=== PATIENT | male | born 1985 | race African-American/Black ===

== ENCOUNTER 2017-07-05 05:12 | Inpatient (IN) | payer OTHER ==
[~2017-07-05] VITALS: Ht 188 cm; Wt 124.1 kg
[2017-07-05] VITALS (7 sets, daily range): BP systolic 145–189; BP diastolic 75–91; PULSE 73–113; RESP 16–22; TEMP 98–99.8; O2SAT 79–99
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
[2017-07-05] MEDS ORDERED: LORazepam 2 MG/ML VIAL IM ONE (05:30)
[2017-07-05] MEDS ORDERED: HALOPERIDOL LACTATE 5 MG/ML AMP IM ONE (05:30)
[2017-07-05] MEDS ORDERED: diphenhydrAMINE HCL 50 MG/ML VIAL IM ONE (05:30)
[2017-07-05 05:46] LABS: AUTOMATED NEUTROPHIL # 2.8 TH/MM3 (1.8-7.7); BASOPHIL % 0.4 % (0.0-2.0); EOSINOPHIL % 0.6 % (0.0-4.0); HEMATOCRIT 41.8 % (39.0-51.0); HEMO FLAGS DIFF FINAL; LYMPH % 24.1 % (9.0-44.0); LYMPHOCYTE # 1.1 TH/MM3 (1.0-4.8); MEAN CORPUSCULAR HEMOGLOBIN 29.4 PG (27.0-34.0); MEAN CORPUSCULAR HGB CONC 34.1 % (32.0-36.0); MONO % 13.9 % (0.0-8.0); PLATELET COUNT 191 TH/MM3 (150-450); RED BLOOD COUNT 4.87 MIL/MM3 (4.50-5.90); RED CELL DISTRIBUTION WIDTH 13.2 % (11.6-17.2); WHITE BLOOD COUNT 4.6 TH/MM3 (4.0-11.0)
[2017-07-05 06:05] LABS: ANION GAP 11 MEQ/L (5-15); AST (GOT) 55 U/L (15-37); BICARBONATE 25.1 MEQ/L (21.0-32.0); BLOOD UREA NITROGEN 17 MG/DL (7-18); CHLORIDE 103 MEQ/L (98-107); GLOMERULAR FILTRATION RATE 56 ML/MIN (>89); POTASSIUM 3.4 MEQ/L (3.5-5.1); SODIUM (NA) 139 MEQ/L (136-145)
[2017-07-05 06:06] LABS: ALCOHOL LESS THAN 3 MG/DL (0-5); ALT (GPT) 49 U/L (12-78)
[2017-07-05 06:08] LABS: ALKALINE PHOSPHATASE 86 U/L (45-117); TOTAL BILIRUBIN ADULT 0.5 MG/DL (0.2-1.0)
[2017-07-05 06:09] LABS: ACETAMINOPHEN LESS THAN 2.0 MCG/ML (10.0-30.0)
[2017-07-05] MEDS ORDERED: POTASSIUM CHLORIDE 20 MEQ CONTROLLED RELEASE TAB PO ONE (06:15)
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
[2017-07-05] MEDS ORDERED: ALUMINUM/MAGNESIUM/SIMETH 30 ML CUP PO PRN (20:45)
[2017-07-05] MEDS ORDERED: ACETAMINOPHEN 325 MG TAB PO PRN (20:45)
[2017-07-05] MEDS ORDERED: MAGNESIUM HYDROXIDE SUSP 30 ML CUP PO PRN (20:45)
[2017-07-05] MEDS ORDERED: LORazepam 2 MG/ML VIAL IM PRN ×2 (20:45)
[2017-07-05] MEDS ORDERED: LORazepam 0.5 MG TAB PO PRN (20:45)
[2017-07-05] MEDS: NICOTINE 21 MG/24 HR PATCH T-DERMAL SCH (20:57)
[2017-07-06] MEDS: LORazepam 1 MG TAB PO PRN (00:19)
[2017-07-06 00:56] VITALS: BP 152/96; PULSE 98; RESP 18; TEMP 97.5; O2SAT 96
[2017-07-06 06:39] VITALS: BP 169/101; PULSE 113; RESP 18; TEMP 98.1; O2SAT 100
[2017-07-06] MEDS: REMOVE OLD PATCH T-DERMAL SCH (08:26)
[2017-07-06] MEDS: NICOTINE 21 MG/24 HR PATCH T-DERMAL SCH (08:30)
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
[2017-07-06] MEDS: ESCITALOPRAM OXALATE 10 MG TAB PO SCH (12:50)
--- NOTE | 2017-07-06 12:53 | PD.CONS ---
[facility] Request[facility] By Reason for Consult medical management. Primary Care Physician Unknown Diagnoses: History of Present Illness patient is a 32 y/o male with history of PTSD and hypertension who's been admitted to the psych unit for psychosis. per the ER , he was found yelling and sniffing the air. at the time of my evaluation he was in no acute distress. he says that ' he was confused earlier'. he denies any chest pain, sob, nausea, abdominal pain or dizziness. Review of Systems Constitutional: DENIES: Fever, Weight loss, Chills, Night Sweats Eyes: DENIES: Blurred vision, Diplopia, Vision loss, Double Vision Ears, nose, mouth, throat: DENIES: Tinnitus, Vertigo, Throat pain, Epistaxis Respiratory: DENIES: Apneas, Cough, Snoring, Wheezing, Hemoptysis, Sputum production, Shortness of breath Cardiovascular: DENIES: Chest pain, Palpitations, Syncope, Dyspnea on Exertion , PND, Lower Extremity Edema, Orthopnea, Claudication Gastrointestinal: DENIES: Abdominal pain, Black stools, Bloody stools, Constipation, Diarrhea, Nausea, Vomiting, Difficulty Swallowing, Anorexia Genitourinary: DENIES: Urinary frequency, Urgency, Hematuria, Dysuria Musculoskeletal: DENIES: Joint pain, Muscle aches, Stiffness, Joint Swelling Integumentary: DENIES: Rash Neurologic: DENIES: Abnormal gait, Headache, Localized weakness, Paresthesias, Seizures, Speech Problems, Tremor, Poor Balance Psychiatric: COMPLAINS OF: Delusions, DENIES: Anxiety, Confusion, Mood changes , Depression, Hallucinations, Agitation, Suicidal Ideation, Homicidal Ideation Past Family Social History Allergies: Coded Allergies: No Known Allergies (Unverified , 07/05/17) Past Medical History PTSD hypertension? Past Surgical History vasectomy Reported Medications lisinopril/ HCTZ- although doesn't take any medications at the moment. Active Ordered Medications Current Medications Haloperidol Lactate (Haldol Inj) 5 mg ONCE ONCE IM Last administered on 05:43; Start 07/05/17 at 05:30; Stop 07/05/17 at 05:31; Status DC Lorazepam (Ativan Inj) 1 mg ONCE ONCE IM Last administered on 07/05/17 05:42 ; Start 07/05/17 at 05:30; Stop 07/05/17 at 05:31; Status DC Diphenhydramine HCl (Benadryl Inj) 50 mg ONCE ONCE IM Last administered on 05:43; Start 07/05/17 at 05:30; Stop 07/05/17 at 05:31; Status DC Potassium Chloride (KCl) 40 meq ONCE ONCE PO ; Start 07/05/17 at 06:15; Stop 07/05/17 at 06:16; Status DC Lorazepam (Ativan) 1 mg Q6H PRN PO MODERATE TO SEVERE ANXIETY Last administered on 07/06/17 00:19; Start 07/05/17 at 20:45 Lorazepam (Ativan Inj) 1 mg Q6H PRN IM MODERATE TO SEVERE ANXIETY Last administered on 07/05/17 22:14; Start 07/05/17 at 20:45 Lorazepam (Ativan) 0.5 mg Q12H PRN PO MODERATE TO SEVERE ANXIETY; Start at 20:45; Stop 07/06/17 at 11:17; Status DC Lorazepam (Ativan Inj) 0.5 mg Q12H PRN IM MODERATE TO SEVERE ANXIETY; Start at 20:45; Stop 07/06/17 at 11:17; Status DC Acetaminophen (Tylenol) 650 mg Q4H PRN PO Pain 1-5 or Temp >101F; Start at 20:45 Magnesium Hydroxide (Milk Of Magnesia Liq) 30 ml DAILY PRN PO CONSTIPATION; Start 07/05/17 at 20:45 Al Hydrox/Mg Hydrox/Simethicone (Mag-Al Plus Susp Liq) 30 ml Q6H PRN PO DYSPEPSIA; Start 07/05/17 at 20:45 Nicotine (Habitrol 21 Mg Patch.24 Hr) 1 patch DAILY T-DERMAL ; Start 07/05/17 at 20:45 Miscellaneous Information 1 DAILY T-DERMAL ; Start 07/06/17 at 09:00 Olanzapine (ZyPREXA ZYDIS ODT) 10 mg HS PO ; Start 07/06/17 at 21:00 Escitalopram Oxalate (Lexapro) 10 mg DAILY PO ; Start 07/06/17 at 11:15 Social History ex-smoker. doesn't drink. uses marihuana. Physical Exam Vital Signs Vital Signs Date Time Temp Pulse Resp B/P (MAP) Pulse Ox O2 Delivery O2 Flow Rate FiO2 07/06/17 06:39 98.1 113 18 169/101 (123) 100 07/06/17 00:56 97.5 98 18 152/96 (114) 96 07/05/17 23:37 07/05/17 22:00 98.0 73 16 177/84 (115) 98 Room Air 07/05/17 18:37 88 18 171/81 (111) 98 Room Air 07/05/17 15:13 99.3 108 18 168/75 (106) 98 Room Air 07/05/17 14:12 98.5 110 18 158/87 (110) 96 Room Air Physical Exam GENERAL: This is a well-nourished, well-developed patient, in no apparent distress. SKIN: No rashes, ecchymoses or lesions. Cool and dry. HEAD: Atraumatic. Normocephalic. No temporal or scalp tenderness. EYES: Pupils equal round and reactive. Extraocular motions intact. No scleral icterus. No injection or drainage. ENT: Nose without bleeding, purulent drainage or septal hematoma. Throat without erythema, tonsillar hypertrophy or exudate. Uvula midline. Airway patent. NECK: Trachea midline. No JVD or lymphadenopathy. Supple, nontender, no meningeal signs. CARDIOVASCULAR: Regular rate and rhythm without murmurs, gallops, or rubs. RESPIRATORY: Clear to auscultation. Breath sounds equal bilaterally. No wheezes , rales, or rhonchi. GASTROINTESTINAL: Abdomen soft, non-tender, nondistended. No hepato-splenomegaly , or palpable masses. No guarding. MUSCULOSKELETAL: Extremities without clubbing, cyanosis, or edema. No joint tenderness, effusion, or edema noted. No calf tenderness. Negative Homans sign bilaterally. NEUROLOGICAL: Awake and alert. Cranial nerves II through XII intact. Motor and sensory grossly within normal limits. Five out of 5 muscle strength in all muscle groups. Normal speech. Laboratory Laboratory Tests Test 07/05/17 21:12 Urine Opiates Screen NEG Urine Barbiturates Screen NEG Urine Amphetamines Screen NEG Urine Benzodiazepines Screen NEG Urine Cocaine Screen NEG Urine Cannabinoids Screen POS Result Diagram: 07/05/1752907/05/17529 Assessment and Plan Assessment and Plan A/P - psychosis with history of PTSD- management per psych. -hypertension- non-compliant with the meds- start on Norvasc- clonidine prn- will monitor and adjust the regimen as needed. -renal insufficiency- with unknown duration- will monitor for now. thank you for the consult. Discussed Condition With the patient. Stiven Oneal MD Jul 06, 2017 12:53
[2017-07-06] MEDS: amLODIPine BESYLATE 5 MG TAB PO SCH (13:53)
[2017-07-06 18:48] LABS: ANION GAP 7 MEQ/L (5-15); BICARBONATE 27.8 MEQ/L (21.0-32.0); BLOOD UREA NITROGEN 18 MG/DL (7-18); CHLORIDE 105 MEQ/L (98-107); GLOMERULAR FILTRATION RATE 77 ML/MIN (>89); POTASSIUM 3.6 MEQ/L (3.5-5.1); SODIUM (NA) 140 MEQ/L (136-145)
[2017-07-06 18:51] LABS: HDL CHOLESTEROL 37.1 MG/DL (40.0-60.0); LDL CHOLESTEROL 60 MG/DL (0-99)
[2017-07-06 19:00] VITALS: BP 184/101; PULSE 112; RESP 18; TEMP 98.4; O2SAT 97
[2017-07-06] MEDS: OLANZapine ODT 10 MG TAB PO SCH (20:58)
[2017-07-07 06:08] VITALS: BP 157/81; PULSE 71; RESP 18; TEMP 98.1; O2SAT 98
[2017-07-07] MEDS: ESCITALOPRAM OXALATE 10 MG TAB PO SCH (08:45)
[2017-07-07] MEDS: REMOVE OLD PATCH T-DERMAL SCH (08:45)
[2017-07-07] MEDS: NICOTINE 21 MG/24 HR PATCH T-DERMAL SCH (08:45)
[2017-07-07] MEDS: amLODIPine BESYLATE 5 MG TAB PO SCH (08:45)
[2017-07-07 10:36] LABS: POTASSIUM 3.4 MEQ/L (3.5-5.1)
--- NOTE | 2017-07-07 12:11 | HHI.PR ---
Subjective Remarks in no acute distress. has on and off mild headache. BP trend noted. d/w the RN and no acute issues over night. Objective Vitals Vital Signs Date Time Temp Pulse Resp B/P (MAP) Pulse Ox O2 Delivery O2 Flow Rate FiO2 07/07/17 06:08 98.1 71 18 157/81 (106) 98 07/06/17 19:00 98.4 112 18 184/101 (128) 97 I/O 07/06/17 07/06/17 07/06/17 07/07/17 07/07/17 07/07/17 07:00 15:00 23:00 07:00 15:00 23:00 Intake Total 240 ml 360 ml 600 ml Balance 240 ml 360 ml 600 ml Intake Oral 240 ml 360 ml 600 ml Result Diagram: 07/05/1730 07/07/17 0845 Objective Remarks GENERAL: This is a well-nourished, well-developed patient, in no apparent distress. CARDIOVASCULAR: Regular rate and regular rhythm without murmurs, gallops, or rubs. RESPIRATORY: Clear to auscultation. Breath sounds equal bilaterally. No wheezes , rales, or rhonchi. GASTROINTESTINAL: Abdomen soft, non-tender, nondistended. Normal, active bowel sounds MUSCULOSKELETAL: Extremities without clubbing, cyanosis, or edema. NEURO: Alert & Oriented x4 to person, place, time, situation. Moves all ext x4 Medications and IVs Current Medications Haloperidol Lactate (Haldol Inj) 5 mg ONCE ONCE IM Last administered on 05:43; Start 07/05/17 at 05:30; Stop 07/05/17 at 05:31; Status DC Lorazepam (Ativan Inj) 1 mg ONCE ONCE IM Last administered on 07/05/17 05:42 ; Start 07/05/17 at 05:30; Stop 07/05/17 at 05:31; Status DC Diphenhydramine HCl (Benadryl Inj) 50 mg ONCE ONCE IM Last administered on 05:43; Start 07/05/17 at 05:30; Stop 07/05/17 at 05:31; Status DC Potassium Chloride (KCl) 40 meq ONCE ONCE PO ; Start 07/05/17 at 06:15; Stop 07/05/17 at 06:16; Status DC Lorazepam (Ativan) 1 mg Q6H PRN PO MODERATE TO SEVERE ANXIETY Last administered on 07/06/17 00:19; Start 07/05/17 at 20:45 Lorazepam (Ativan Inj) 1 mg Q6H PRN IM MODERATE TO SEVERE ANXIETY Last administered on 07/05/17 22:14; Start 07/05/17 at 20:45 Lorazepam (Ativan) 0.5 mg Q12H PRN PO MODERATE TO SEVERE ANXIETY; Start at 20:45; Stop 07/06/17 at 11:17; Status DC Lorazepam (Ativan Inj) 0.5 mg Q12H PRN IM MODERATE TO SEVERE ANXIETY; Start at 20:45; Stop 07/06/17 at 11:17; Status DC Acetaminophen (Tylenol) 650 mg Q4H PRN PO Pain 1-5 or Temp >101F; Start at 20:45 Magnesium Hydroxide (Milk Of Magnesia Liq) 30 ml DAILY PRN PO CONSTIPATION; Start 07/05/17 at 20:45 Al Hydrox/Mg Hydrox/Simethicone (Mag-Al Plus Susp Liq) 30 ml Q6H PRN PO DYSPEPSIA; Start 07/05/17 at 20:45 Nicotine (Habitrol 21 Mg Patch.24 Hr) 1 patch DAILY T-DERMAL ; Start 07/05/17 at 20:45 Miscellaneous Information 1 DAILY T-DERMAL ; Start 07/06/17 at 09:00 Olanzapine (ZyPREXA ZYDIS ODT) 10 mg HS PO Last administered on 07/06/17 20:58 ; Start 07/06/17 at 21:00 Escitalopram Oxalate (Lexapro) 10 mg DAILY PO Last administered on 07/07/17 08 :45; Start 07/06/17 at 11:15 Amlodipine Besylate (Norvasc) 5 mg DAILY PO Last administered on 07/07/17 08: 45; Start 07/06/17 at 14:00 Clonidine (Catapres) 0.1 mg Q8H PRN PO SBP> OR = 180, DBP> OR = 100; Start 07/06/17 at 13:00 A/P Assessment and Plan A/P - psychosis with history of PTSD- management per psych. -hypertension- non-compliant with the meds- continue Norvasc- clonidine prn- will monitor and adjust the regimen as needed. will increase Norvasc tomorrow if BP still elevated. -renal insufficiency- likely chronic due to hypertension- fairly stable- f/u as outpatient. -mild hypokalemia; will replace. Stiven Oneal MD Jul 07, 2017 12:11
[2017-07-07] MEDS ORDERED: POTASSIUM CHLORIDE 20 MEQ CONTROLLED RELEASE TAB PO ONE (12:15)
[2017-07-07 12:35] LABS: HEMOGLOBIN A1a 1.1 %; HEMOGLOBIN A1b 0.9 %; HEMOGLOBIN Ao 86.4 %; HEMOGLOBIN F 0.9 %; HEMOGLOBIN LA1C 1.6 %; HEMOGLOBIN P3 3.2 %
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
[2017-07-07] MEDS: cloNIDine HCL 0.1 MG TAB PO PRN (19:24)
[2017-07-07] MEDS: OLANZapine ODT 10 MG TAB PO SCH (21:45)
[2017-07-07 22:00] VITALS: BP 169/82; PULSE 72; RESP 20
[2017-07-08 06:09] VITALS: BP 131/84; PULSE 51; RESP 18; TEMP 97.7; O2SAT 99
[2017-07-08] MEDS: NICOTINE 21 MG/24 HR PATCH T-DERMAL SCH (09:00)
[2017-07-08] MEDS: REMOVE OLD PATCH T-DERMAL SCH (09:00)
[2017-07-08] MEDS: amLODIPine BESYLATE 5 MG TAB PO SCH (09:06)
[2017-07-08] MEDS: ESCITALOPRAM OXALATE 10 MG TAB PO SCH (09:06)
--- NOTE | 2017-07-08 10:49 | HHI.PR ---
Subjective Remarks in no acute distress. no new complaints. BP trend noted. d/w the RN. Objective Vitals Vital Signs Date Time Temp Pulse Resp B/P (MAP) Pulse Ox O2 Delivery O2 Flow Rate FiO2 07/08/17 06:09 97.7 51 18 131/84 (100) 99 07/07/17 22:00 72 20 169/82 (111) I/O 07/07/17 07/07/17 07/07/17 07/08/17 07/08/17 07/08/17 07:00 15:00 23:00 07:00 15:00 23:00 Intake Total 600 ml Balance 600 ml Intake Oral 600 ml Result Diagram: 07/05/17 0530 07/07/17 0845 Objective Remarks GENERAL: This is a well-nourished, well-developed patient, in no apparent distress. CARDIOVASCULAR: Regular rate and regular rhythm without murmurs, gallops, or rubs. RESPIRATORY: Clear to auscultation. Breath sounds equal bilaterally. No wheezes , rales, or rhonchi. GASTROINTESTINAL: Abdomen soft, non-tender, nondistended. Normal, active bowel sounds MUSCULOSKELETAL: Extremities without clubbing, cyanosis, or edema. NEURO: Alert & Oriented x4 to person, place, time, situation. Moves all ext x4 Medications and IVs Current Medications Haloperidol Lactate (Haldol Inj) 5 mg ONCE ONCE IM Last administered on 05:43; Start 07/05/17 at 05:30; Stop 07/05/17 at 05:31; Status DC Lorazepam (Ativan Inj) 1 mg ONCE ONCE IM Last administered on 07/05/17 05:42 ; Start 07/05/17 at 05:30; Stop 07/05/17 at 05:31; Status DC Diphenhydramine HCl (Benadryl Inj) 50 mg ONCE ONCE IM Last administered on 05:43; Start 07/05/17 at 05:30; Stop 07/05/17 at 05:31; Status DC Potassium Chloride (KCl) 40 meq ONCE ONCE PO ; Start 07/05/17 at 06:15; Stop 07/05/17 at 06:16; Status DC Lorazepam (Ativan) 1 mg Q6H PRN PO MODERATE TO SEVERE ANXIETY Last administered on 07/06/17 00:19; Start 07/05/17 at 20:45 Lorazepam (Ativan Inj) 1 mg Q6H PRN IM MODERATE TO SEVERE ANXIETY Last administered on 07/05/17 22:14; Start 07/05/17 at 20:45 Lorazepam (Ativan) 0.5 mg Q12H PRN PO MODERATE TO SEVERE ANXIETY; Start at 20:45; Stop 07/06/17 at 11:17; Status DC Lorazepam (Ativan Inj) 0.5 mg Q12H PRN IM MODERATE TO SEVERE ANXIETY; Start at 20:45; Stop 07/06/17 at 11:17; Status DC Acetaminophen (Tylenol) 650 mg Q4H PRN PO Pain 1-5 or Temp >101F; Start at 20:45 Magnesium Hydroxide (Milk Of Magnesia Liq) 30 ml DAILY PRN PO CONSTIPATION; Start 07/05/17 at 20:45 Al Hydrox/Mg Hydrox/Simethicone (Mag-Al Plus Susp Liq) 30 ml Q6H PRN PO DYSPEPSIA; Start 07/05/17 at 20:45 Nicotine (Habitrol 21 Mg Patch.24 Hr) 1 patch DAILY T-DERMAL ; Start 07/05/17 at 20:45 Miscellaneous Information 1 DAILY T-DERMAL ; Start 07/06/17 at 09:00 Olanzapine (ZyPREXA ZYDIS ODT) 10 mg HS PO Last administered on 07/07/17 21:45 ; Start 07/06/17 at 21:00 Escitalopram Oxalate (Lexapro) 10 mg DAILY PO Last administered on 07/08/17 09:06; Start 07/06/17 at 11:15 Amlodipine Besylate (Norvasc) 5 mg DAILY PO Last administered on 07/08/17 09: 06; Start 07/06/17 at 14:00 Clonidine (Catapres) 0.1 mg Q8H PRN PO SBP> OR = 180, DBP> OR = 100 Last administered on 07/07/17 19:24; Start 07/06/17 at 13:00 Potassium Chloride (KCl) 20 meq ONCE ONCE PO Last administered on 07/07/17 13 :01; Start 07/07/17 at 12:15; Stop 07/07/17 at 12:16; Status DC A/P Assessment and Plan A/P - psychosis with history of PTSD- management per psych. -hypertension- non-compliant with the meds- BP still elevated; will dc Norvasc and start on Procardia- keep on Clonidine prn. will monitor and adjust the regimen as needed. -renal insufficiency- likely chronic due to hypertension- fairly stable- f/u as outpatient. -mild hypokalemia; replaced. Stiven Oneal MD Jul 08, 2017 10:49
[2017-07-08 11:02] VITALS: BP 169/84; PULSE 61; RESP 17; TEMP 97.8; O2SAT 96
[2017-07-08] MEDS: NIFEdipine 30 MG SUSTAINED RELEASE TAB PO SCH (12:33)
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
[2017-07-08] MEDS: cloNIDine HCL 0.1 MG TAB PO PRN (15:40)
[2017-07-08] MEDS: LORazepam 1 MG TAB PO PRN (18:01)
[2017-07-08 18:20] VITALS: BP 185/80; PULSE 65; RESP 18; TEMP 98.2; O2SAT 99
[2017-07-08 18:21] VITALS: BP 185/80
[2017-07-08 18:55] VITALS: BP 178/92; PULSE 77
[2017-07-08] MEDS: OLANZapine ODT 10 MG TAB PO SCH (20:12)
[2017-07-09 06:00] VITALS: BP 161/89; PULSE 90; RESP 18; TEMP 97.1; O2SAT 100
[2017-07-09] MEDS: NICOTINE 21 MG/24 HR PATCH T-DERMAL SCH (09:00)
[2017-07-09] MEDS: REMOVE OLD PATCH T-DERMAL SCH (09:00)
[2017-07-09] MEDS: NIFEdipine 30 MG SUSTAINED RELEASE TAB PO SCH (09:38)
[2017-07-09] MEDS: ESCITALOPRAM OXALATE 10 MG TAB PO SCH (09:38)
--- NOTE | 2017-07-09 10:57 | HHI.PR ---
Subjective Remarks in no acute distress. no new complaints. BP trend noted. Objective Vitals Vital Signs Date Time Temp Pulse Resp B/P (MAP) Pulse Ox O2 Delivery O2 Flow Rate FiO2 07/09/17 06:00 97.1 90 18 161/89 (113) 100 07/08/17 18:55 77 178/92 (120) 07/08/17 18:21 185/80 (115) 07/08/17 18:20 98.2 65 18 185/80 (115) 99 07/08/17 11:02 97.8 61 17 169/84 (112) 96 Result Diagram: 07/05/17 0530 07/07/17 0845 Objective Remarks GENERAL: This is a well-nourished, well-developed patient, in no apparent distress. CARDIOVASCULAR: Regular rate and regular rhythm without murmurs, gallops, or rubs. RESPIRATORY: Clear to auscultation. Breath sounds equal bilaterally. No wheezes , rales, or rhonchi. GASTROINTESTINAL: Abdomen soft, non-tender, nondistended. Normal, active bowel sounds MUSCULOSKELETAL: Extremities without clubbing, cyanosis, or edema. NEURO: Alert & Oriented x4 to person, place, time, situation. Moves all ext x4 Medications and IVs Inpatient Medications Acetaminophen (Tylenol) 650 mg Q4H PRN PO Pain 1-5 or Temp >101F; Start at 20:45 Al Hydrox/Mg Hydrox/Simethicone (Mag-Al Plus Susp Liq) 30 ml Q6H PRN PO DYSPEPSIA; Start 07/05/17 at 20:45 Amlodipine Besylate (Norvasc) 5 mg DAILY PO Last administered on 07/08/17 09: 06; Start 07/06/17 at 14:00; Stop 07/08/17 at 11:34; Status DC Clonidine (Catapres) 0.1 mg Q8H PRN PO SBP> OR = 180, DBP> OR = 100 Last administered on 07/08/17 15:40; Start 07/06/17 at 13:00 Diphenhydramine HCl (Benadryl Inj) 50 mg ONCE ONCE IM Last administered on 05:43; Start 07/05/17 at 05:30; Stop 07/05/17 at 05:31; Status DC Escitalopram Oxalate (Lexapro) 10 mg DAILY PO Last administered on 07/09/17 09:38; Start 07/06/17 at 11:15 Haloperidol Lactate (Haldol Inj) 5 mg ONCE ONCE IM Last administered on 05:43; Start 07/05/17 at 05:30; Stop 07/05/17 at 05:31; Status DC Lorazepam (Ativan Inj) 0.5 mg Q12H PRN IM MODERATE TO SEVERE ANXIETY; Start at 20:45; Stop 07/06/17 at 11:17; Status DC Lorazepam (Ativan) 0.5 mg Q12H PRN PO MODERATE TO SEVERE ANXIETY; Start at 20:45; Stop 07/06/17 at 11:17; Status DC Magnesium Hydroxide (Milk Of Magnesia Liq) 30 ml DAILY PRN PO CONSTIPATION; Start 07/05/17 at 20:45 Miscellaneous Information 1 DAILY T-DERMAL ; Start 07/06/17 at 09:00 Nicotine (Habitrol 21 Mg Patch.24 Hr) 1 patch DAILY T-DERMAL ; Start 07/05/17 at 20:45 Nifedipine (Procardia Xl) 30 mg DAILY PO Last administered on 07/09/17 09:38 ; Start 07/08/17 at 12:00 Olanzapine (ZyPREXA ZYDIS ODT) 10 mg HS PO Last administered on 07/08/17 20: 12; Start 07/06/17 at 21:00 Potassium Chloride (KCl) 20 meq ONCE ONCE PO Last administered on 07/07/17 13 :01; Start 07/07/17 at 12:15; Stop 07/07/17 at 12:16; Status DC A/P Assessment and Plan A/P - psychosis with history of PTSD- management per psych. -hypertension- non-compliant with the meds- BP still elevated; just started on Procardia- keep on Clonidine prn. will monitor and adjust the regimen as needed; will consider increasing procadia if BP remains elevated. -renal insufficiency- likely chronic due to hypertension- fairly stable- f/u as outpatient. -mild hypokalemia; replaced. Stiven Oneal MD Jul 09, 2017 10:57
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
--- NOTE | 2017-07-09 15:44 | PD.TTN ---
Patient Problems 1. Discharge planning 2. Medication compliance 3. Knowledge deficit 4. Lack of coping skills Progress Toward Goals Provider Present: Dr. Debra Ortiz Provider Input: Dr. Ortiz's treatment team met to discuss patient's treatment plan, discharge and medication. Patient at this time meets criteria. Will have a family meeting with . Increase medication, patient continues to present internally stimulated Nurse(s) Input: Patient's nurse Arnold reports patient is medication compliant. Internally preoccupied, has high blood pressure regardless that patient is being medication complaint. Patient is eating and sleeping ok. Patient denies suicidal and homicidal ideation. Psychiatric Counselors Present: Joana Araujo [facility] Psych [facility]rapist Input: Patient seen today. Patient is alert to person and place but minimizes his situation.Patient presents pleasant cooperative but guarded.. Patient denies hearing any voices or seeing any thing, although patient's speech is limited and delayed. Patient denies suicidal and homicidal ideation. Patient and his will have a family meeting with this counselor. Dr. Ortiz patient and patients . Group Spec/RT/OT/BURGER Present: Darrian Byrd OT Group Spec/RT/OT/BURGER Input: Patient attends all groups. Joana Araujo [facility] Jul 09, 2017 15:43
[2017-07-09 16:44] VITALS: BP 181/96
[2017-07-09] MEDS: cloNIDine HCL 0.1 MG TAB PO PRN (16:44)
[2017-07-09 17:01] VITALS: BP 181/96; PULSE 79; RESP 18; TEMP 98.5; O2SAT 98
[2017-07-09 20:00] VITALS: BP 181/96; PULSE 79; RESP 18; TEMP 98.5; O2SAT 98
[2017-07-09] MEDS: OLANZapine ODT 10 MG TAB PO SCH (22:24)
[2017-07-10] MEDS: REMOVE OLD PATCH T-DERMAL SCH (09:00)
[2017-07-10] MEDS: NICOTINE 21 MG/24 HR PATCH T-DERMAL SCH (09:00)
[2017-07-10] MEDS: ESCITALOPRAM OXALATE 10 MG TAB PO SCH (09:10)
[2017-07-10] MEDS: NIFEdipine 30 MG SUSTAINED RELEASE TAB PO SCH (09:10)
[2017-07-10] MEDS: OLANZapine 5 MG TAB PO SCH (09:10)
[2017-07-10 14:05] VITALS: BP 173/77; PULSE 58
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
[2017-07-10] MEDS ORDERED: NIFEdipine 30 MG SUSTAINED RELEASE TAB PO ONE (17:15)
--- NOTE | 2017-07-10 17:25 | HHI.PR ---
Subjective Remarks Follow up on patient with HTN. Patient seen and examined. Patient reports slight headache. Denies any vision changes, lightheadedness or dizziness. He denies any diaphoresis or palpitations. He denies any chest pain or shortness of breath. Denies any nausea, vomiting or abdominal pain. BP currently 173/77. Objective Vitals Vital Signs Date Time Temp Pulse Resp B/P (MAP) Pulse Ox O2 Delivery O2 Flow Rate FiO2 07/10/17 14:05 58 173/77 (109) 07/09/17 20:00 98.5 79 18 181/96 (124) 98 Result Diagram: 07/07/17 0845 Objective Remarks GENERAL: Well-nourished, well-developed male patient in NAD. Awake and alert. SKIN: Warm and dry. No rash. HEAD: Normocephalic. Atraumatic. EYES: EOMI. No scleral icterus. No injection or drainage. ENT: No nasal bleeding or discharge. Mucous membranes pink and moist. NECK: Supple. Trachea midline. CARDIOVASCULAR: Regular rate and rhythm. S1, S2 noted. No murmur appreciated. RESPIRATORY: Nonlabored. Clear to auscultation. Breath sounds equal bilaterally. GASTROINTESTINAL: Abdomen soft, non-tender, nondistended. Normoactive bowel sounds x4. MUSCULOSKELETAL: No obvious deformities. Extremities without clubbing, cyanosis , or edema. NEUROLOGICAL: Awake and alert. Able to move all extremities spontaneously. No focal neurologic finding. Normal speech. PSYCHIATRIC: Appropriate mood and affect; insight and judgment normal. Medications and IVs Current Medications Medications (Trade) Dose Ordered Sig/Leonor Route Start Time Stop Time Status Last Admin (Ativan) 1 mg Q6H PRN PO 07/05/17 20:45 07/08/17 18:01 (Ativan Inj) 1 mg Q6H PRN IM 07/05/17 20:45 07/05/17 22:14 (Tylenol) 650 mg Q4H PRN PO 07/05/17 20:45 (Milk Of Magnesia Liq) 30 ml DAILY PRN PO 07/05/17 20:45 (Mag-Al Plus Susp Liq) 30 ml Q6H PRN PO 07/05/17 20:45 (Habitrol 21 Mg Patch.24 Hr) 1 patch DAILY T-DERMAL 07/05/17 20:45 Miscellaneous Information 1 DAILY T-DERMAL 07/06/17 09:00 (Lexapro) 10 mg DAILY PO 07/06/17 11:15 07/10/17 09:10 (Catapres) 0.1 mg Q8H PRN PO 07/06/17 13:00 07/09/17 16:44 (Procardia Xl) 30 mg DAILY PO 07/08/17 12:00 07/10/17 09:10 (ZyPREXA) 5 mg DAILY PO 07/10/17 09:00 07/10/17 09:10 (ZyPREXA ZYDIS ODT) 15 mg HS PO 07/10/17 21:00 A/P Assessment and Plan 32-year-old male with past medical history significant for hypertension, medication noncompliance and PTSD who mentioned inpatient psychiatric unit for psychosis. Hospitalist service consulted for medical management. Psychosis PTSD - Management per psychiatric team Hypertension, uncontrolled History of medication noncompliance - Still elevated, increase Procardia XL to 60 mg daily - Clonidine when necessary with parameters - check TSH, renin and aldosterone levels - Continue to monitor blood pressure and adjust treatment accordingly Renal insufficiency - Suspect secondary to uncontrolled hypertension - Unknown baseline - obtain Renal US - Avoid nephrotoxic agent - Repeat BMP Hypokalemia - Status post repletion - Repeat potassium level to monitor response Urine drug screen positive for marijuana DVT prophylaxis - Patient is ambulatory Nereida Pereira Jul 10, 2017 17:25
[2017-07-10 18:00] VITALS: BP 149/83; PULSE 87; RESP 18; TEMP 98.1; O2SAT 97
--- NOTE | 2017-07-10 19:11 | RADRPT ---
EXAM DATE/TIME: 07/10/2017 17:57 [facility] COMPARISON: No previous studies available for comparison. INDICATIONS : Increased BUN/Creatinine. MEDICAL HISTORY : Hypertension. Asthma. PTSD. Substance abuse. SURGICAL HISTORY : None. ENCOUNTER: Initial ACUITY: 1 day PAIN SCORE: 0/10 LOCATION: Bilateral flank MEASUREMENTS: RIGHT KIDNEY: 12.2 x 5.6 x 6.2 cm LEFT KIDNEY: 12.1 x 6.1 x 5.8 cm FINDINGS: RIGHT KIDNEY: Renal cortex is normal in thickness and echotexture. No hydronephrosis, stone, or mass. LEFT KIDNEY: Renal cortex is normal in thickness and echotexture. No hydronephrosis, stone, or mass. BLADDER: Within normal limits given the degree of distension. CONCLUSION: Normal examination for a patient of this age. Stan Mendez MD on July 10, 2017 at 19:08 Board Certified Radiologist. This report was verified electronically.
[2017-07-10] MEDS ORDERED: OLANZapine ODT 15 MG TAB PO SCH (21:00)
[2017-07-11 06:16] VITALS: BP 154/71; PULSE 74; RESP 18; TEMP 97.4; O2SAT 99
[2017-07-11 08:08] LABS: BICARBONATE 30.3 MEQ/L (21.0-32.0); POTASSIUM 3.8 MEQ/L (3.5-5.1)
[2017-07-11] MEDS: ESCITALOPRAM OXALATE 10 MG TAB PO SCH (08:28)
[2017-07-11] MEDS: OLANZapine 5 MG TAB PO SCH (08:28)
[2017-07-11] MEDS ORDERED: PADIMATE (CHAPSTICK) 4.5 GM TUBE TOPICAL PRN (08:45)
[2017-07-11] MEDS: NICOTINE 21 MG/24 HR PATCH T-DERMAL SCH (09:00)
[2017-07-11] MEDS: REMOVE OLD PATCH T-DERMAL SCH (09:00)
[2017-07-11] MEDS ORDERED: NIFEdipine 30 MG SUSTAINED RELEASE TAB PO SCH (09:00)
--- NOTE | 2017-07-11 09:09 | HHI.PR ---
Subjective Remarks Follow up on patient with HTN. Patient seen and examined. Patient requesting chapstick this morning. He denies any other complaints. He denies any dizziness, vision changes or headache. Denies any chest pain or shortness of breath. Denies any nausea, vomiting or abdominal pain. Objective Vitals Vital Signs Date Time Temp Pulse Resp B/P (MAP) Pulse Ox O2 Delivery O2 Flow Rate FiO2 07/11/17 06:16 97.4 74 18 154/71 (98) 99 07/10/17 18:00 98.1 87 18 149/83 (105) 97 07/10/17 14:05 58 173/77 (109) Result Diagram: 07/11/17 0730 Imaging Last Impressions Renal Ultrasound 07/10/17 0000 Signed Impressions: Service Date/Time: Monday, July 10, 2017 17:57 - CONCLUSION: Normal examination for a patient of this age. Stan Mendez MD Objective Remarks GENERAL: Well-nourished, well-developed male patient in [facility]. Awake and alert. Ambulating in the unit. SKIN: Warm and dry. (+)Multiple tattoos. HEAD: Normocephalic. Atraumatic. EYES: EOMI. No scleral icterus. No injection or drainage. ENT: No nasal bleeding or discharge. Mucous membranes pink and moist. NECK: Trachea midline. CARDIOVASCULAR: Regular rate and rhythm. S1, S2 noted. No murmur appreciated. RESPIRATORY: Nonlabored. Clear to auscultation. Breath sounds equal bilaterally. GASTROINTESTINAL: Abdomen soft, non-tender, nondistended. Normoactive bowel sounds x4. MUSCULOSKELETAL: No obvious deformities. Extremities without clubbing, cyanosis , or edema. NEUROLOGICAL: Awake and alert. Able to move all extremities spontaneously. No focal neurologic finding. Normal speech. PSYCHIATRIC: Appropriate mood and affect, calm, pleasant. Medications and IVs Current Medications Medications (Trade) Dose Ordered Sig/Leonor Route Start Time Stop Time Status Last Admin (Ativan) 1 mg Q6H PRN PO 07/05/17 20:45 07/08/17 18:01 (Ativan Inj) 1 mg Q6H PRN IM 07/05/17 20:45 07/05/17 22:14 (Tylenol) 650 mg Q4H PRN PO 07/05/17 20:45 (Milk Of Magnesia Liq) 30 ml DAILY PRN PO 07/05/17 20:45 (Mag-Al Plus Susp Liq) 30 ml Q6H PRN PO 07/05/17 20:45 (Habitrol 21 Mg Patch.24 Hr) 1 patch DAILY T-DERMAL 07/05/17 20:45 Miscellaneous Information 1 DAILY T-DERMAL 07/06/17 09:00 (Lexapro) 10 mg DAILY PO 07/06/17 11:15 07/11/17 08:28 (Catapres) 0.1 mg Q8H PRN PO 07/06/17 13:00 07/09/17 16:44 (ZyPREXA) 5 mg DAILY PO 07/10/17 09:00 07/11/17 08:28 (ZyPREXA ZYDIS ODT) 15 mg HS PO 07/10/17 21:00 07/10/17 21:52 (Procardia Xl) 60 mg DAILY PO 07/11/17 09:00 07/11/17 08:28 (Chapstick) 1 applic UNSCH PRN TOPICAL 07/11/17 08:45 UNV A/P Assessment and Plan 32-year-old male with past medical history significant for hypertension, medication noncompliance and PTSD who mentioned inpatient psychiatric unit for psychosis. Hospitalist service consulted for medical management. Psychosis PTSD - Management per psychiatric team Hypertension, uncontrolled History of medication noncompliance - Procardia XL increased to 60 mg daily. BP improved but not optimized. - Clonidine when necessary with parameters - TSH WNL - renin and aldosterone levels pending - Continue to monitor blood pressure and adjust treatment accordingly Renal insufficiency LARY, improving - Suspect secondary to uncontrolled hypertension - Unknown baseline - Renal US normal - Avoid nephrotoxic agent - continue to monitor kidney function as indicated Hypokalemia - resolved status post repletion Urine drug screen positive for marijuana DVT prophylaxis - Patient is ambulatory Discussed with patient, nursing staff and Nereida Allen Jul 11, 2017 09:09
[2017-07-11] MEDS ORDERED: NIFE30TA8 PO (15:28)
[2017-07-11] MEDS ORDERED: ZYPR5TAB PO (15:28)
[2017-07-11] MEDS ORDERED: ZYPR15TA PO (15:28)
[2017-07-11] MEDS ORDERED: ESCI10TA PO (15:28)
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
--- NOTE | 2017-07-11 16:03 | PD.TTN ---
Patient Problems 1. Discharge planning 2. Medication compliance 3. Knowledge deficit 4. Lack of coping skills Progress Toward Goals Provider Present: Dr. Debra Ortiz Provider Input: Dr. Ortiz's treatment team met to discuss patient's treatment plan, discharge and medication. Patient at this time meets criteria. Will have a family meeting with . Increase medication, patient continues to present internally stimulated 07/11/17 Patient present well. Patient will be discharged home. Nurse(s) Input: Patient's nurse Arnold reports patient is medication compliant. Internally preoccupied, has high blood pressure regardless that patient is being medication complaint. Patient is eating and sleeping ok. Patient denies suicidal and homicidal ideation. 07/11/17 Patient's nurse Hung reports patient is medication compliant. Doing well, denies suicidal ideation and denies any auditory or visual hallucinations. Psychiatric Counselors Present: RAMANDEEP Austin Psych Therapist Input: Patient seen today. Patient is alert to person and place but minimizes his situation.Patient presents pleasant cooperative but guarded.. Patient denies hearing any voices or seeing any thing, although patient's speech is limited and delayed. Patient denies suicidal and homicidal ideation. Patient and his will have a family meeting with this counselor. Dr. Ortiz patient and patients . 07/11/17 Patient doing better. Patient presents pleasant, cooperative, denies any suicidal and homicidal ideation. Patient's speech is clear and appropriate. patient is being discharged home, and [facility] Group Spec/RT/OT/BURGER Present: JENNYFER Reyes, Darrian Byrd, OT Group Spec/RT/OT/BURGER Input: Patient attends all groups. 07/11/17 Patient does not attend groups. Joana Araujo Jul 11, 2017 16:03
== END 2017-07-11 18:50 | disposition home or self-care (01) | DRG 897 ==
LOC: NEPD 05:12 → NEDA 20:42 → H260 07-06
PROVIDERS: ADMIT Psychiatry & Neurology Psychiatry; ATTEND Psychiatry & Neurology Psychiatry
DX: F19.959 Other psychoactive substance use, unspecified with psychoactive substance-induced psychotic disorder, unspecified (principal); N17.9 Acute kidney failure, unspecified; F43.10 Post-traumatic stress disorder, unspecified; Z91.14 Patient's other noncompliance with medication regimen; I10 Essential (primary) hypertension; Z87.820 Personal history of traumatic brain injury; E87.6 Hypokalemia; F12.90 Cannabis use, unspecified, uncomplicated; F17.210 Nicotine dependence, cigarettes, uncomplicated; R45.850 Homicidal ideations
CPT/HCPCS: 76775; 80048; 80053; 80061; 80307; 82088; 83036; 84244; 84443; 85025; 96372; J1200; J1630; J2060